=== PATIENT | female | born 2000 | race Caucasian/White ===

== ENCOUNTER 2022-04-11 22:34 | Emergency (ER) | payer BC ==
[~2022-04-11] VITALS: Ht 172.7 cm; Wt 86.2 kg
[2022-04-11 22:55] VITALS: BP_SYST 137
--- NOTE | 2022-04-11 22:55 | NUR ---
Patient triaged and placed in waiting room. VSS and patient appears in no acute distress at this time. Awaiting available bed, and MD notified of need for MSE.
[2022-04-12] MEDS ORDERED: FLUORESCEIN SODIUM 1 MG OPHTHALMIC STRIP OP ONE
[2022-04-12] MEDS ORDERED: TETRACAINE HCL/PF 0.5% OPHTHALMIC DROPS 4 ML OP ONE
--- NOTE | 2022-04-12 00:23 | NUR ---
Patient to ER bed 7 to gown for evaluation. Side rails up. Report given to Nikia WILLETT(reg).
--- NOTE | 2022-04-12 00:25 | NUR ---
RECEIVED PT FOR WAITING AREA HERE FOR RT EYE CHECK. PT STATED THAT SHE FEELS LIKE THERE IS BUBBLE ON HER RT EYE. PT DENIES BLURRY VISION,DENIES HEADACHEA AND DENIES DIZZINESS. PT STATED THAT STARTED 1 HR PRIOR TO ER ARRIVAL. PMH;DENIES PRESENTED HERE AAOX4, NO SOB NOTED AND NAD. PENDING MD FITZGERALD.
--- NOTE | 2022-04-12 01:15 | NUR ---
JAYCE Anthony at bedside examining patient.
[2022-04-12] MEDS ORDERED: NAPH15DR52 RIGHT EYE (01:27)
--- NOTE | 2022-04-12 01:37 | NUR ---
DC PT HOME AAOX4, NO SOB NOTED AND NAD. DC INSTRUCTION AND PRESCRIPTION WERE GIEVEN TO PT ALSO INSTRUCTED TO F/U WITH HER PCP. SHE VERBALIZED UNDERSTANDING
== END 2022-04-12 01:36 | disposition home or self-care (01) ==
LOC: SED 22:34
DX: H10.44 Vernal conjunctivitis (principal); H57.11 Ocular pain, right eye; Z79.899 Other long term (current) drug therapy
CPT/HCPCS: 99283